=== PATIENT | female | born 1965 | race Two or more races ===

== ENCOUNTER 2017-10-17 13:37 | Emergency (ER) | payer MEDICAID ==
[~2017-10-17] VITALS: Ht 157.5 cm; Wt 72.6 kg
[2017-10-17 14:10] VITALS: BP 140/82
[2017-10-17] MEDS: Ketorolac 30mg Inj IV ONE (15:06)
--- NOTE | 2017-10-17 15:15 | Emergency Room Report ---
History of Present Illness General Chief Complaint: Abdominal Pain Source: Patient Present Illness HPI 52YOF walk-in with 4 days pain to right lower back and across frontal suprabpic area. Pain radiates down right leg No associated fever/chills, nausea/vomiting, diarrhea No sick contacts No previous abd/pelvic surgery Saw PMD 2 days ago, got Rx bentyl - not helping with symptoms Allergies: Coded Allergies: No Known Allergies (Unverified , 10/17/17) Patient History Past Medical History: none Past Surgical History: none Pertinent Family History: none Social History: Denies: smoking, alcohol use, drug use Last Menstrual Period: 2 years ago Now: No Immunizations: UTD Reviewed Nursing Documentation: PMH: Agreed, PSxH: Agreed Nursing Documentation-PMH Past Medical History: No Stated History Review of Systems All Other Systems: negative except mentioned in HPI Physical Exam Vital Signs Date Time Temp Pulse Resp B/P (MAP) Pulse Ox O2 Delivery O2 Flow Rate FiO2 10/17/17 14:03 98.4 58 16 139/87 98 Room Air Sp02 EP Interpretation: reviewed, normal General Appearance: normal inspection, well appearing, no apparent distress, alert, GCS 15, non-toxic Head: normocephalic, atraumatic Eyes: bilateral eye PERRL, bilateral eye EOMI ENT: normal ENT inspection, hearing grossly normal, normal voice Neck: normal inspection, full range of motion, supple, no bony tend Respiratory: normal inspection, lungs clear, normal breath sounds, no respiratory distress, no retraction, no wheezing Cardiovascular #1: regular rate, rhythm, no edema Gastrointestinal: normal inspection, normal bowel sounds, non tender, soft, no guarding, no hernia Genitourinary: no CVA tenderness Musculoskeletal: normal inspection, back normal, normal range of motion, Osmani' s Sign negative Neurologic: normal inspection, alert, oriented x3, responsive, wallpaper remover steam III-XII nml as tested, motor strength/tone normal, speech normal Psychiatric: normal inspection, judgement/insight normal, mood/affect normal Skin: normal inspection, normal color, no rash Lymphatic: normal inspection Medical Decision Making Diagnostic Impression: Primary Impression: Abdominal pain Qualified Codes: R10.31 - Right lower quadrant pain Additional Impression: UTI (urinary tract infection) Qualified Codes: N30.00 - Acute cystitis without hematuria ER Course RLQ abd pain radiating to back without right CVAT No fever/chills Systemically well Labs: UA grossly infected. No leuks. H&h stable. No metabolic abnormalities. DC home Rx Keflex for UTI Last Vital Signs Date Time Temp Pulse Resp B/P (MAP) Pulse Ox O2 Delivery O2 Flow Rate FiO2 10/17/17 14:03 98.4 58 16 139/87 98 Room Air Status: improved Disposition: HOME, SELF-CARE Scripts Cephalexin* (KEFLEX*) 500 Mg Capsule 500 MG ORAL EVERY 12 HOURS for 7 Days, #14 CAP 0 Refills Prov: SANTI ATKINS M.D. 10/17/17 SANTI ATKINS M.D. Oct 17, 2017 15:15
[2017-10-17 15:51] LABS: ANION GAP 6 mmol/L (5-15); CALCIUM 9.1 MG/DL (8.5-10.1); CARBON DIOXIDE 30 MMOL/L (21-32); CHLORIDE 106 MMOL/L (98-107); CREATININE 0.7 MG/DL (0.55-1.30); GLOMERULAR FILTRATION RATE > 60 mL/min (>60); POTASSIUM 4.4 MMOL/L (3.5-5.1); SODIUM 142 MMOL/L (136-145)
[2017-10-17 15:53] LABS: APPEARANCE,URINE SLIGHTLY CLOUDY; KETONES,URINE NEGATIVE (NEGATIVE); LEUKOCYTE ESTERASE ,URINE 3+ (NEGATIVE); NITRITE,URINE NEGATIVE (NEGATIVE); PH,URINE 6 (4.5-8.0); PROTEIN,URINE NEGATIVE (NEGATIVE); UROBILINOGEN,URINE NORMAL MG/DL (0.0-1.0)
[2017-10-17 15:55] LABS: ALANINE AMINOTRANSFERASE 45 U/L (12-78); ALBUMIN/GLOBULIN RATIO 1.1 (1.0-2.7); ASPARTATE AMINO TRANSFERASE 35 U/L (15-37); LIPASE 189 U/L (73-393); TOTAL PROTEIN 7.7 G/DL (6.4-8.2)
[2017-10-17 16:07] LABS: BASOPHILS % (AUTO) 1.6 % (0.0-2.0); EOSINOPHILS % (AUTO) 2.8 % (0.0-3.0); LYMPHOCYTES % (AUTO) 35.9 % (20.0-45.0); MEAN CORPUSCULAR HEMOGLOBIN 25.6 PG (27.0-31.0); MEAN CORPUSCULAR VOLUME 86 FL (80-99); MEAN PLATELET VOLUME 10.2 FL (6.5-10.1); MONOCYTES % (AUTO) 8.2 % (1.0-10.0); NEUTROPHILS % (AUTO) 51.5 % (45.0-75.0); PLATELET COUNT 191 K/UL (150-450); RED BLOOD COUNT 5.41 M/UL (4.20-5.40); RED CELL DISTRIBUTION WIDTH 13.6 % (11.6-14.8); WHITE BLOOD COUNT 8.5 K/UL (4.8-10.8)
[2017-10-17 16:14] LABS: BACTERIA,URINE FEW /HPF; RBC,URINE 0-2 /HPF (0 - 2); SQUAMOUS EPITHELIAL CELL,UR MODERATE /LPF (NONE/OCC); WBC,URINE 20-30 /HPF (0 - 2)
[2017-10-17] MEDS ORDERED: KEFLEX500 MG ORAL (16:24)
[2017-10-17 16:40] VITALS: BP 126/79
== END 2017-10-17 16:40 | disposition home or self-care (01) ==
LOC: EMR 15:03
DX: R10.30 Lower abdominal pain, unspecified (principal); N39.0 Urinary tract infection, site not specified
CPT/HCPCS: 36415; 80053; 81003; 83690; 85025; 87086; 96374; 96375; 99284; J1885; S0028

== ENCOUNTER 2018-08-27 09:52 | Emergency (ER) | payer MEDICAID, OTHER ==
[~2018-08-27] VITALS: Ht 157.5 cm; Wt 81.6 kg
[~2018-08-27 09:52] MED LIST: KEFLEX500 MG ORAL
[2018-08-27] MEDS ORDERED: NKM (10:00)
--- NOTE | 2018-08-27 11:57 | Diagnostic Imaging Report ---
Indication: Back pain Comparison: None Findings: 3 views of the lumbar spine were obtained. No acute fracture or malalignment is identified. Vertebral body heights and disk spaces are well maintained. Posterior elements are unremarkable. Impression: No acute findings.
--- NOTE | 2018-08-27 11:57 | Diagnostic Imaging Report ---
Indications: hip pain Findings: Two views of the right hip were obtained. No acute fracture is demonstrated. Alignment of the hip is within normal limits. Soft tissues are unremarkable. Impression: Negative for acute injury.
[2018-08-27] MEDS ORDERED: IBUPROFEN600 MG ORAL (12:26)
[2018-08-27] MEDS ORDERED: NORCO 5-325 TA1 EACH ORAL (12:26)
[2018-08-27 12:41] VITALS: BP 148/90
--- NOTE | 2018-08-27 13:05 | Diagnostic Imaging Report ---
Indication: Right leg pain TECHNIQUE: Duplex Doppler imaging of the deep veins of the right lower showing a performed in real-time. FINDINGS: No thrombosis identified from the common femoral vein to the popliteal vein with normal compressibility and the Doppler signal/color flow imaging. Normal respiratory phasicity demonstrated on waveforms with good augmentation. IMPRESSION: No evidence of DVT in the right lower extremity veins
--- NOTE | 2018-08-27 13:47 | Emergency Room Report ---
History of Present Illness General Chief Complaint: Pain Source: Patient Present Illness HPI Patient work as a surface grinder. Patient complains of acute right hip pain that radiates down the leg. Patient also complains of Pain and swelling in the leg. Patient denies any injuries. Patient states that she's been working a lot. The pain is worse with flexion at the hip. No other injuries are noted. Patient denies any fall.No other modifying factors. No other associated signs and symptoms. No other complaints were noted. Allergies: Coded Allergies: No Known Allergies (Unverified , 10/17/17) Patient History Past Medical History: none Past Surgical History: none Pertinent Family History: none Social History: Denies: smoking, alcohol use, drug use Last Menstrual Period: 3 yrs ago Reviewed Nursing Documentation: PMH: Agreed; PSxH: Agreed Nursing Documentation-PMH Past Medical History: No Stated History Review of Systems All Other Systems: negative except mentioned in HPI Physical Exam Vital Signs Date Time Temp Pulse Resp B/P (MAP) Pulse Ox O2 Delivery O2 Flow Rate FiO2 08/27/18 09:56 98.8 81 18 156/109 97 Room Air 98.8 Sp02 EP Interpretation: reviewed, normal General Appearance: normal inspection, well appearing, no apparent distress, alert Head: atraumatic Eyes: bilateral eye normal inspection ENT: normal ENT inspection, hearing grossly normal, normal voice Neck: normal inspection, full range of motion, supple, no bony tend Respiratory: normal inspection, lungs clear, normal breath sounds, no respiratory distress, no retraction, no wheezing Cardiovascular #1: regular rate, rhythm, no edema Gastrointestinal: normal inspection, normal bowel sounds, non tender, soft, no guarding, no hernia Genitourinary: no CVA tenderness Musculoskeletal: back normal, decreased range of motion - Due to pain, tender - Tender calf Neurologic: normal inspection, alert, responsive, speech normal Psychiatric: normal inspection, judgement/insight normal, mood/affect normal Skin: normal inspection, normal color, no rash Medical Decision Making Diagnostic Impression: Primary Impression: Leg pain Additional Impression: Sciatica ER Course Patient presents emergency department today complaining of right lower chimney pain. Differential considerations include DVT, sciatica, lumbar strain just to name a few. Given patient's presentation and calf tenderness I was concerned about possible DVT. Ultrasound was performed and was negative for DVT. Patient 's x-rays are also negative as interpreted by radiology. Therefore felt the patient discharged home. Patient is advised follow-up outpatient. Return to ER for any worsening symptoms and as needed. Patient was given pain medications. Last Vital Signs Date Time Temp Pulse Resp B/P (MAP) Pulse Ox O2 Delivery O2 Flow Rate FiO2 08/27/18 12:41 97.8 79 18 148/90 100 Room Air 97.8 Status: improved Disposition: HOME, SELF-CARE Condition: Stable Scripts Ibuprofen* (MOTRIN*) 600 Mg Tablet 600 MG ORAL Q8H PRN for For Pain, #20 TAB 0 Refills Prov: Vazquez Metzger MD 08/27/18 Hydrocodone Bit/Acetaminophen 5-325* (NORCO 5-325*) 1 Each Tablet 1 TAB ORAL Q6H PRN for For Pain, #20 TAB 0 Refills Prov: Vazquez Metzger MD 08/27/18 Patient Instructions: Sciatica, [id number] Vazquez Metzger MD Aug 27, 2018 13:47
== END 2018-08-27 12:41 | disposition home or self-care (01) ==
LOC: EMR 10:12
DX: M54.31 Sciatica, right side (principal)
CPT/HCPCS: 72020; 93971; 99284